=== PATIENT | male | born 1985 | race Caucasian/White ===

== ENCOUNTER 2024-11-06 17:43 | Emergency (ER) | payer BC, SELFPAY ==
--- OUTSIDE RECORDS SUMMARY | 2024-11-06 17:46 | XMS_ITS | Clinical Summary ---
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 5 Active varenicline tartrate 0.5 mg (11)- 1 mg (42) tabletIndication s:Tobacco consumption Days 1-3 take 0.5mg once daily; Days 4-7 take 0.5mg twice daily; then increase to 1mg twice daily. Take with meals. 1 Packet 5 Active varenicline tartrate 1 mg tabletIndication s:Tobacco consumption Take 1 mg by mouth two times daily with meals. 112 Tablet 5 Active nicotine 21 mg/24 hr 21 mg/24 hr patchIndications :Tobacco consumption Apply 1 Patch on dry, clean, hairless skin once daily. 14 Patch 2 5 Active Active Problems Problem Noted Date Diagnosed Date Family history of early CAD 08/11/2024 Tobacco dependence 08/11/2024 Tobacco use disorder 01/27/2013 Encounters Date Type Department Care Team Description 08/11/2024 1:40 PM CDT Office Visit [facility] [address] [place], [place] [id number] Sneha Yeung DO Physical (39 year old ); Nicotine Dependence (Interested in chantix ) 08/11/2024 Travel from Last 3 Months Immunizations Immunization Administration Dates Next Due AMB Influenza, IIV4 PF (=>6 mos Flulaval,Fluzone Fluarix)(Flu Clinic Only) 02/18/2020 COVID-19 vaccine ([employer] 30mcg/0.3mL) P F, MDV 10/11/2020,09/19/2020 Influenza, IIV3 (Age >=3 years) 01/27/2013 Influenza, IIV4 03/29/2021,02/08/2018 Tdap 01/27/2013 Family History Medical History Relation Name Comments Hypertension Father Hyperlipidemia Mother Hypertension Mother Heart attack Sister Hypertension Sister Relation Name Status Comments Father Alive Mother Alive Sister (Age 37) Social History Tobacco Use Types Packs/Day Years Used Date Smoking Tobacco: Every Day Cigarettes 1 20.5 Started: 2004 Smokeless Tobacco: Never Tobacco Cessation:Ready to Q uit: No; Counseling Given: Yes Alcohol Use Standard Drinks/Week Comments Yes 0 (1 standard drink = 0.6 oz pur e alcohol) 2-3 beers 2-3 times per week PHQ-2 Answer Date Recorded PHQ-2 TOTAL SCORE 0 08/11/2024 Social Connections Answer Date Recorded Do you often feel lonely or isolated from those around you? 0 08/11/2024 Financial Resource Strain Answer Date R ecorded Difficulty of Paying Living Expenses 3 08/11/2024 Difficulty of Paying Living Expenses Not on file 08/11/2024 Food Insecurity Answer Date Recorded Do you worry your food will run out before you are able to buy more? 1 08/11/2024 Transportation Needs Answer Date Record ed Does lack of transportation keep you from medica l appointments? 1 08/11/2024 Does lack of transportation keep you from work, meetings or getting things that you need? 1 08/11/2024 Housing Stability Answer Date Recorded What is your housing situation today? 1 08/11/2024 Utilities Answer Date Recorded Do you have trouble paying f or utilities (for example, heat, electricity, water, phone)? 1 08/11/2024 Sex and Gender Information Value Date Recorded Sex Assigned at Not on file Legal Sex Male 9:25 AM CDT Gender Identity Not on file Sexual Orientation Not on file Obstetrics History Last Filed Vital Signs Vital Sign Reading Time Taken Comments Blood Pressure 123/82 08/11/2024 1:41 PM CDT Pulse 96 08/11/2024 1:41 PM CDT Temperature 37.5 C (99.5 F) 04/04/2021 2:12 PM YARN TESTER Respiratory Rate 18 02/10/2016 5:28 PM CDT Oxygen Saturation 97% 08/11/2024 1:41 PM CDT Inhaled Oxygen Concentration - - Weight 104.3 kg (230 lb) 08/11/2024 1:41 PM CDT Height 191.8 cm (6' 3.5) 08/11/2024 1:41 PM CDT Body Mass Index 28.37 08/11/2024 1:41 PM CDT Plan of Treatment Health Maintenance Due Date Last Done Comments HIV for age 15-65 2001 Hepatitis C screening for ag e 18-79 2004 Hepatitis B series for 19+ ( 1 of 3 - 19+ 3-dose series) 2005 Pneumococcal series for age 6-49 (1 of 2 - PCV) 2005 Tetanus booster 01/27/2023 01/27/2013 COVID-19 vaccine series ( season) 2024 05/17/2021, 10/11/2020, 09/19/2020 Influenza Vaccine (#1) 2025 , 02/18/2020, 02/08/2018, Additional history exists BMI (ht and wt on same day) for age 18+ 08/11/2025 08/11/2024, 03/29/2021, 02/24/2016, Additional history exists Depression screening for age 12+ 08/11/2025 08/11/2024, 03/29/2021, 10/05/2015 Lipids for age 35-44 08/11/2029 08/11/2024, 03/29/2021, 01/27/2013 Procedures Procedure Name Priority Date/Time Associated Diagnosis Comments DIRECT LDL ([facility] ONLY) Routine 08/11/2024 2:15 PM CDT LIPID PANEL W REFLEX MEASURED LDL Routine 08/11/2024 2:15 PM CDT Annual physical exam BASIC METABOLIC PANEL Routine 08/11/2024 2:15 PM CDT Annual physical exam from Last 3 Months Results * (ABNORMAL) DIRECT LDL ([facility] ONLY) (08/11/2024 2:15 PM CDT) DIRECT LDL 138(H) <100 mg/dL [facility] Comment: Desirable range <100 mg/dL for primary prevention; <70 mg/dL for patients with CHD or diabetic patients with > or = 2 CHD risk factors. 08/11/2024 2:15 PM CDT 08/11/2024 2:16 PM CDT us Sneha Yeung DO CHEMISTRY Final Result [facility] [address] [facility] [place] [address], [facility] [address] [place] [address] * (ABNORMAL) LIPID PANEL W REFLEX MEASURED LDL (08/11/2024 2:15 PM CDT) CHOLESTEROL, TOTAL 244(H) <200 mg/dL [facility] HDL CHOLESTEROL 42 > OR = 40 mg/dL [facility] TRIGLYCERIDES 698(H) <150 mg/dL [facility] Comment: If a non-fasting specimen was collected, consider repeat triglyceride testing on a fasting specimen if clinically indicated. Zhong et al. J. of Clin. Lipidol. 2015;9:129-169. There is increased risk of pancreatitis when the triglyceride concentration is very high (> or = 500 mg/dL, especially if > or = 1000 mg/dL). Zhong et al. J. of Clin. Lipidol. 2015;9:129-169. LDL-CHOLESTEROL [facility] Comment: LDL cholesterol not calculated. Triglyceride levels greater than 400 mg/dL invalidate calculated LDL results. Reference range: <100 Desirable range <100 mg/dL for primary prevention; <70 mg/dL for patients with CHD or diabetic patients with > or = 2 CHD risk factors. LDL-C is now calculated using the Stu-Gambino calculation, which is a validated novel method providing better accuracy than the Friedewald equation in the estimation of LDL-C. Stu SS et al. SUHA. 2013;310(19): 9102-5090 (http://education.Venafi/faq/VXZ390) CHOL/HDLC RATIO 5.8(H) <5.0 (calc) [facility] NON HDL CHOLESTEROL 202(H) <130 mg/dL (calc) [facility] Comment: For patients with diabetes plus 1 major ASCVD risk factor, treating to a non-HDL-C goal of <100 mg/dL (LDL-C of <70 mg/dL) is considered a therapeutic option. Blood BLOOD SPECIMEN / Unknown 08/11/2024 2:15 PM CDT 08/11/2024 2:16 PM CDT us Dedei Anjana DO CHEMISTRY Final Result [facility] [address] [place] [address], [facility] [address] [place] [phone] * (ABNORMAL) BASIC METABOLIC PANEL (08/11/2024 2:15 PM CDT) [facility] GLUCOSE 113(H) 65 - 99 mg/dL [facility] [place] Comment: Fasting reference interval For someone without known diabetes, a glucose value between 100 and 125 mg/dL is consistent with prediabetes and should be confirmed with a follow-up test. UREA NITROGEN (BUN) 12 7 - 25 mg/dL [facility] [place] CREATININE 0.93 0.60 - 1.26 mg/dL [facility] [place] EGFR 108 > OR = 60 mL/min/1. 73m2 [facility] [place] BUN/CREATININE RATIO SEE NOTE: 6 - 22 (calc) [facility] [place] Comment: Not Reported: BUN and Creatinine are within reference range. SODIUM 142 135 - 146 mmol/L [facility] [place] POTASSIUM 4.2 3.5 - 5.3 mmol/L [facility] CHLORIDE 105 98 - 110 mmol/L [facility] CARBON DIOXIDE 27 20 - 32 mmol/L [facility] ELECTROLYTE BALANCE 10 7 - 17 mmol/L (calc) [facility] CALCIUM 9.9 8.6 - 10.3 mg/dL [facility] Blood BLOOD SPECIMEN / Unknown 08/11/2024 2:15 PM CDT 08/11/2024 2:16 PM CDT us Dedeyuly Arciniegasixto DO CHEMISTRY Final Result [facility] [address] [place] [address], [facility] [address] [place] [address] from Last 3 Months Insurance [facility] Care Teams Dope House Operator Helper Relationship Specialty Start Date End Date Pcp, No . PCP - General 01/27/13
[2024-11-06 17:51] VITALS: BP 134/86; PULSE 93; RESP 16; TEMP 37.3; O2SAT 97; BMI 29.6
--- NOTE | 2024-11-06 19:09 | ED.GENADULT ---
HPI - General Adult General Date Seen: 11/06/24 Chief complaint: Laceration/Wound Stated complaint: Laceration - foot Time Seen by Provider: 11/06/24 19:08 History of Present Illness HPI narrative: 39 yo generally healthy male presenting to the ER today for a laceration involving the the dorsum of his left big toe. He was in his home today. He was wearing flip-flops when he accidentally hit his toe against the exposed metal blade of a weed whacker. It was the middle part the cuts the plastic string of the weed whacker. He suffered a laceration on the dorsum of the toe that does split the toenail plate roughly down the middle and extend then onto the dorsum of the skin of the distal phalanx. He had dark red venous oozing that was bleeding briskly but was controlled by direct pressure at home. Based on the length and depth of the cut he knew anything come to the ER. No other injuries. No trouble flexing or extending his toe. No associated numbness. He is not anticoagulated a coagulopathic. No history of diabetes or immunosuppression. He is not sure of his most recent tetanus., per medical record his Most recent tetanus was 12 years ago in 2013. Related Data Home Medications ?Medication ?Instructions ?Recorded ?Confirmed cetirizine 10 mg tablet (24Hour 10 mg PO DAILY PRN 11/06/24 11/06/24 Allergy) varenicline tartrate 1 mg tablet 2 mg PO BID 11/06/24 11/06/24 (Chantix) Allergies Allergy/AdvReac Type Severity Reaction Status Date / Time No Known Drug Allergies Allergy Verified 11/06/24 17:50 [facility] Medical History (Updated 11/06/24 @ 19:55 by Antione Samayoa MD) [place] eye ?H10.029 - Other mucopurulent conjunctivitis, unspecified eye (ICD-10) Social History Smoking Status: Current every day smoker How often do you have a drink containing alcohol: monthly or less AUDIT-C Alcohol total score: 1 Non-prescribed substance use: denies use Exam Narrative: Exam Narrative: Constitutional: Appears well-developed and well-nourished. Active. Non-toxic appearing. HENT: Head: Atraumatic. No signs of injury. Nose: No nasal discharge. Mouth/Throat: Mucous membranes are moist. Pharynx is normal. Tonsils symmetric. Uvula midline. Airway patent. Eyes: Conjunctivae normal and EOM are normal. Pupils are equal, round, and reactive to light. Right eye exhibits no discharge. Left eye exhibits no discharge. No icterus. Neck: Normal range of motion. Neck supple. No adenopathy. No stridor. Cardiovascular: Normal rate and regular rhythm. No murmur heard. No murmurs, rubs, or gallops. Brisk capillary refill Pulmonary/Chest: Effort normal. No stridor. No respiratory distress. No wheezes.No rhonchi. No rales. No retractions. Abdominal: Soft. Bowel sounds are normal. No distension. No mass. There is no tenderness. There is no rebound and no guarding. Musculoskeletal: Normal except for right great toe- Normal range of motion. No edema. No tenderness. No deformity. Right foot-there is a 1.5 cm laceration affecting the skin of the dorsum of the toe over the distal phalanx. There is a small amount of dark red venous oozing. No arterial bleeding. No foreign body. The wound also extends distally and affects the entirety of his nail plate. There is a very thin cracked through the nail plate but the nail plate does not come apart with traction and there does not appear to be any deep nailbed injury. I do not see any oozing from the nail bed itself. All the losing his coming from the skin proximal to the nail plate. Intact flexion and extension of the IP joint. Normal digital nerve sensory function. Neurological: Alert. Normal strength. No cranial nerve deficit or sensory deficit. Coordination normal. GCS eye subscore is 4. GCS verbal subscore is 5. GCS motor subscore is 6. Skin: Skin is warm. No rash noted. Const: Vital Signs, click to edit/add: Vital Signs - 24 hr 11/06/24 17:51 Temperature 99.2 F Pulse Rate [Pulse Oximeter] 93 Respiratory Rate 16 Blood Pressure [Ri ght Upper Arm] 134/86 Pulse Oximetry 97 Oxygen Delivery Me thod Room Air Course Vital Signs Vital signs: Initial Vital Signs Temperature 99.2 F 11/06/24 17:51 Temperature Source Temporal Artery Scan 11/06/24 17:51 Pulse Rate 93 11/06/24 17:51 Pulse Rhythm Regular 11/06/24 17:51 Respiratory Rate 16 11/06/24 17:51 Blood Pressure 134/86 11/06/24 17:51 Blood Pressure Mean 102 11/06/24 17:51 Blood Pressure Position Sitting 11/06/24 17:51 Pulse Oximetry 97 11/06/24 17:51 Oxygen Delivery Method Room Air 11/06/24 17:51 Vital Signs Temperature 99.2 F 11/06/24 17:51 Pulse Rate 93 11/06/24 17:51 Respiratory Rate 16 11/06/24 17:51 Blood Pressure 134/86 11/06/24 17:51 Pulse Oximetry 97 11/06/24 17:51 Oxygen Delivery Method Room Air 11/06/24 17:51 Temperature 99.2 F 11/06/24 17:51 Pulse Rate 93 11/06/24 17:51 Respiratory Rate 16 11/06/24 17:51 Blood Pressure 134/86 11/06/24 17:51 Pulse Oximetry 97 11/06/24 17:51 Oxygen Delivery Method Room Air 11/06/24 17:51 Medications Administered Medications: Generic Name Dose Route Start Last Admin Trade Name Freq PRN Reason Stop Dose Admin Diphtheria/Tetanus/Acell Pertussis 0.5 ml 11/06/24 19:11 11/06/24 19:30 Tetanus/Diphth/Pertussis 0.5 Ml Syringe IM 11/06/24 19:12 0.5 ml .ONCE ONE Administration Medical Decision Making MDM Narrative Medical decision making narrative: Findings and exam are consistent with an linear laceration on the dorsum of his right great toe which was repaired as noted above. There is no evidence at this time to suggest any associated fracture or foreign body. We did close the skin with sutures because it is gaping and oozing. The wound does not involve the nail plate because it is split all the way out to the toenail tip. However I do not see any signs of bleeding from under the nail plate and there is no signs of any hematoma under the nail plate. At this point I do not think there is any significant nail bed injury. Using shared decision-making, we decided not to remove the nail for exploration. I think we probably do more trauma to the toe by removing the nail that benefit by repairing the small nail bed laceration.. There is no evidence to suggest tendon or arterial injury and patient is neurologically in tact. The patient is to follow up for suture removal as instructed in 10 days. Indications to seek urgent reevaluation and signs of infection (including but not limited to increasing pain, redness, swelling, fevers, and drainage) were reviewed. since this is laceration on the toe and was inflicted by a lawn implement we will start him on prophylactic Keflex. Tetanus is updated today. An understanding of the discharge instructions and need for follow up were verbally confirmed. Precautions for return to the ER reviewed. Discharge Plan Discharge Clinical Impression: Laceration of toe Patient Disposition: Home, Self-Care Condition: Stable Instructions: Laceration (DC) Additional Instructions: As we discussed, please keep your wound clean and dry tonight and tomorrow. Beginning Saturday morning you can take the dressing down and wash gently with warm water and washcloth once per day. After the wound is clean gently to have a dry with clean gauze and then reapply antibiotic ointment and a new dressing every day. Avoid submerging wound under water. If the wound gets dirty or contaminated, please come back to the ER to have it rechecked. While the wound is healing watch for signs of infection such as redness, swelling, or pus draining from the wound. If you have any concerns, please return to the ER or see your doctor immediately. Will start you on a preventative antibiotic called cephalexin. Start that antibiotic this evening. Please follow-up for suture removal in 10 days. We do note that your toenail plate is split. I think that the underlying and toenail bed injury will heal without removing the toenail or stitching that area. I suspect that your toe nail may fall off on its own over the next few weeks. Also, there is a chance that your toenail may grow out with a permanent split between healing nail. Please come back to the ER right away if you have any concerns or problems. Prescriptions: No Action cetirizine [24Hour Allergy] 10 mg tablet 10 mg PO DAILY PRN varenicline tartrate [Chantix] 1 mg tablet 2 mg PO BID Follow Up/Referrals: Eusebia Alvarez MD [Primary Care Provider, Family Practice] Stand Alone Forms: Work/School Release, [facility] Info Instructions Procedures Laceration Toe laceration: Site: lower extremity (Right great toe) Side (If applicable): right Size (cm): 1.5 Description: linear Depth: simple, single layer Local Anesthetic: lidocaine 1% (Digital block using 6 mL of 1% lidocaine) Skin layer closed with: nylon Size (cm): 5-0 Number of sutures: 5 Technique: simple, interrupted
[2024-11-06] MEDS: TETANUS/DIPHTH/PERTUSSIS 0.5 ML SYRINGE IM (19:30)
== END 2024-11-06 20:01 | disposition home or self-care (01) ==
LOC: ED 20:01
PROVIDERS: Emergency Provider Emergency Medicine; PCP Family Medicine
DX: S91.112A Laceration without foreign body of left great toe without damage to nail, initial encounter (principal); W22.8XXA Striking against or struck by other objects, initial encounter; Z23 Encounter for immunization
CPT/HCPCS: 12001; 90471; 90715; 99283; 99284